=== PATIENT | male | born 1965 | race Caucasian/White ===

== ENCOUNTER 2018-07-05 10:14 | Day surgery (SDC) | payer BC ==
[2018-07-05] MEDS: NS 1,000 ML IV (10:30)
[2018-07-05 11:19] LABS: BEDSIDE GLUCOSE 127 MG/DL (70-105)
[2018-07-05] MEDS ORDERED: PROPOFOL 200 MG/20 ML VIAL As Ordered (11:42)
[2018-07-05] MEDS ORDERED: LIDOCAINE 2% INJ 100 MG/5 ML SDV (FOR ANES.) As Ordered (11:42)
== END 2018-07-05 12:51 | disposition home or self-care (01) ==
LOC: M OPP 10:14
DX: Z86.010 Personal history of colon polyps (principal); K64.0 First degree hemorrhoids; K57.30 Diverticulosis of large intestine without perforation or abscess without bleeding
CPT/HCPCS: 45378

== ENCOUNTER → 2020-05-23 | Outpatient (REF) | payer BC ==
[~2020-05-23] MED LIST: ASPI81TA26 PO; BYDU1INJ SC; FENO160T10 PO; GLYB5TAB12 PO; LISI10TA4 PO; OMEG10002 PO; OMEP40CA97 PO; PIOG1TAB37 PO; ROSU40TA4 PO; TESTOPEL; TRES1INJ SC
[2020-05-23 18:40] LABS: CREATININE, URINE 94.9 MG/DL; MALB URINE SIEMENS 9.7 MG/L; MAU/CREAT RATIO 10.2 MCG/MG (0.0-30.0)
== END ==
LOC: M LAB REF 16:48
PROVIDERS: ATTEND Nurse Practitioner Family
DX: E11.65 Type 2 diabetes mellitus with hyperglycemia (principal)

== ENCOUNTER → 2024-01-17 | Outpatient (CLI) | payer BC ==
[~2024-01-17] MED LIST changes: +GLYB-150 PO; -GLYB5TAB12 PO; +LISI10TA22 PO; -LISI10TA4 PO; +OMEP40CA4 PO; -OMEP40CA97 PO; -ROSU40TA4 PO; +ROSU40TA63 PO
[2024-01-17 10:59] LABS: HEMOGLOBIN A1c 7.1 % (4.0-6.0)
[2024-01-17 11:11] LABS: HEMATOCRIT 45.7 % (42.0-52.0); HEMOGLOBIN 15.6 g/dl (13.5-17.5); MEAN CORPUSCULAR HEMOGLOBIN 32.4 pg (27.0-33.0); MEAN CORPUSCULAR HGB CONC 34.1 g/dl (32.0-36.5); RED BLOOD COUNT 4.81 10^6/uL (4.30-6.10); WHITE BLOOD COUNT 2.2 10^3/uL (4.0-10.0)
[2024-01-17 11:12] LABS: PLATELET COUNT, AUTOMATED 76 10^3/uL (150-450)
[2024-01-17 11:15] LABS: ALBUMIN 3.5 G/DL (3.2-5.2); ALKALINE PHOSPHATASE 112 U/L (46-116); ALT/SGPT 108 U/L (7.0-40); AST/SGOT 154 U/L (<34); BILIRUBIN,TOTAL 1.9 MG/DL (0.3-1.2); BLOOD UREA NITROGEN 14 MG/DL (9-23); CALCIUM LEVEL 9.2 MG/DL (8.5-10.1); CARBON DIOXIDE LEVEL 28 MMOL/L (20-31); CHLORIDE LEVEL 100 MMOL/L (98-107); CREATININE FOR GFR 1.06 MG/DL (0.70-1.30); GLOMERULAR FILTRATION RATE > 60.0 (>56); GLUCOSE, FASTING 99 MG/DL (60-100); POTASSIUM SERUM 4.4 MMOL/L (3.5-5.1); SODIUM LEVEL 136 MMOL/L (136-145); TOTAL PROTEIN 6.6 G/DL (5.7-8.2)
[2024-01-17 11:42] LABS: ATYPICAL LYMPH 5 % (0-5); BASOPHILS 4 % (0-1); LYMPHOCYTES 15 % (16-44); MONOCYTES 6 % (0-5); NEUTROPHILS 52 % (28-66)
[2024-01-17 11:44] LABS: PLATELET ESTIMATE DECREASED (NORMAL)
== END ==
LOC: M WUC 08:58
PROVIDERS: ATTEND Physician Assistant
DX: R50.9 Fever, unspecified (principal); J06.9 Acute upper respiratory infection, unspecified; Z20.828 Contact with and (suspected) exposure to other viral communicable diseases